=== PATIENT | female | born 1940 ===

== ENCOUNTER 2017-08-27 07:15 | Day surgery (SDC) | payer MEDICARE ==
[2017-08-13 12:10] VITALS: BMI 34.5
[~2017-08-27 07:15] MED LIST: Ciprofloxacin 0.3% OPTH SOLN OS SCH; Cyclopentolate 1% Opth (2 ml) OS SCH; Flurbiprofen 0.03% Opht SOLN OS SCH; Lactated Ringer's 500 ML IV ONE; Phenylephrine 2.5% Opht Soln OS SCH; Tropicamide 1% Opht SOLUTION OS SCH
[2017-08-27] MEDS: Tetracaine 0.5% Ophth (OR ONLY) ONE ×2 (08:10→08:50)
[2017-08-27] MEDS: Povidone Iodine Ophthalmic 5% Soln ONE ×2 (08:11→08:50)
[2017-08-27] MEDS: Lidocaine 2% Inj (20ml) ONE ×2 (08:12→08:52)
[2017-08-27] MEDS: Hyaluronidase Human, Recombi 150 U/ML VIAL ONE ×2 (08:12→08:52)
[2017-08-27] MEDS: Chondroitin/Hyaluronate Opth Syringe KIT (0.55 ml-0.5 ml) IO ONE ×3 (08:13→09:55)
[2017-08-27] MEDS: Carbachol 0.01% IO ONE ×2 (08:13→09:15)
[2017-08-27] MEDS: Tobramycin/Dexamethasone OPHT OINT ONE ×2 (08:15→10:03)
[2017-08-27] MEDS ORDERED: Midazolam 2 MG/2 ML VIAL ONE (08:32)
[2017-08-27] MEDS ORDERED: Sodium Chloride 0.9% 250 ML IV ONE (08:45)
[2017-08-27] MEDS ORDERED: Flumazenil 0.1 mg/ml Inj (5ml) IVP ONE (09:13)
[2017-08-27] MEDS ORDERED: Chondroitin/Hyaluronate 40 mg/ml-30 mg/ml Ophth Syringe (0.5 ml) IO ONE ×3 (09:20→09:52)
[2017-08-27] MEDS: Chondroitin/Hyaluronate 40 mg/ml-30 mg/ml Ophth Syringe (0.5 ml) IO ONE ×2 (09:35→09:40)
[2017-08-27] MEDS ORDERED: Propofol 10 mg/ml Inj (20 ML) ONE (09:48)
[2017-08-27] MEDS ORDERED: Sodium Chloride 0.9% 1,000 ML IV SCH (10:30)
[2017-08-27] MEDS ORDERED: Albuterol-Ipratrop 3 mg / 0.5 (3 ml) UD INH STA (10:38)
[2017-08-27] MEDS ORDERED: Albuterol-Ipratrop 3 mg / 0.5 (3 ml) UD ONE (10:43)
[2017-08-27 12:54] VITALS: RESP 16; O2SAT 96
[2017-08-27 13:04] VITALS: BP 128/51; PULSE 64; TEMP 97.5
--- NOTE | 2017-08-27 22:45 | OP ---
PROCEDURE DATE: 08/27/2017 PREOPERATIVE DIAGNOSIS: Mature cataract, left eye. POSTOPERATIVE DIAGNOSIS: Mature cataract, left eye. OPERATIVE PROCEDURE: Phacoemulsification, left eye, insertion of posterior chamber implant. SURGEON: Zachary Bright MD TYPE OF ANESTHESIA: Local with IV sedation. DESCRIPTION OF PROCEDURE: The patient was brought into the operating room, placed in supine position, prepped and draped in the usual fashion for ophthalmic surgery. Lid speculum was inserted, lids and exposing globe. A side-port incision was made inferiorly and superiorly with a disposable sharp blade. Anterior chamber filled with Viscoat. A near clear corneal incision was made temporally with a 2.4-mm keratome. Capsulorrhexis was then performed with Utrata forceps. Hydrodissection carried out with balanced salt solution. 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 Hydrodissection and phacoemulsification were then performed. After completion of phacoemulsification, there was noted a small tear in the posterior capsule with no vitreous presenting. An implant was then injected into the capsular sac, rotated into horizontal position. The side-port incisions were made watertight with balanced salt solution. After temporal incision of the iris, the iridectomy was performed because the iris could not be reposited into the eye. The wound was closed with two 10-0 Prolene sutures and Provisc was removed from the anterior chamber and pressure dressing was then applied. The patient tolerated the procedure well. Zachary Bright MD
== END 2017-08-27 11:36 | disposition home or self-care (01) ==
LOC: C.SDS 07:15
PROVIDERS: ATTEND Ophthalmology
DX: H25.13 Age-related nuclear cataract, bilateral (principal)
CPT/HCPCS: 66984; 82948; J2250; J2704; J3010; J3470; J7040; V2632